=== PATIENT | male | born 1995 | race Caucasian/White ===

== ENCOUNTER 2016-09-24 20:15 | Emergency (ER) | payer MEDICAID ==
[~2016-09-24] VITALS: Ht 167.6 cm; Wt 74.5 kg
[2016-09-24 20:27] VITALS: Ht 167.6 cm; Wt 74.5 kg
--- NOTE | 2016-09-24 22:37 | RADRPT ---
PROCEDURE: CT Head without. CLINICAL INDICATION: Fall, loss of consciousness. TECHNIQUE: The study was performed utilizing a multi-slice, multidetector CT scanner. Direct spira l 1 mm axial sections were obtained through the head without the use of intravenous contrast materia l. 1 or more of the following dose reduction techniques were utilized: Automated exposure control, adjustment of the mA and/or kV according to patient's size, iterative reconstruction technique. Co elida and sagittal reformations were obtained. The images were reviewed on a PACS workstation. RADIATION DOSE: CTDIvol: 45.0 mGyDLP: 720.2 mGy-cm COMPARISON: No prior studies are available for comparison. FINDINGS: There is no intracranial hemorrhage, extra-axial fluid collection, mass lesion, midline shift or hyd rocephalus. The ventricles, sulci and cisterns are within normal limits. The white matter is unrem arkable. The chaudhari-white matter differentiation is preserved. The basal cisterns are patent. The m idline structures are intact. There is minimal soft tissue swelling in the right parietal region wi thout evidence of underlying calvarial fracture. The orbits are normal in appearance. The visualize d paranasal sinuses, mastoid air cells and middle ear cavities are normally aerated. There is pneuma tization bilateral petrous apices without evidence of inflammatory changes, normal variant. IMPRESSION: 1. No acute intracranial abnormality. No intracranial hemorrhage, extra-axial fluid collection, ma ss lesion or hydrocephalous. 2. Minimal swelling in the right parietal region without evidence of underlying calvarial fracture. RPTAT: HGAS .Kvng Durant MD, MD Date Time Electronically viewed and signed by .Kvng Durant MD, MD on 09/24/2016 22:36 .S/
--- NOTE | 2016-09-24 22:38 | ERD ---
ER Documentation Chief Complaint Date/Time DATE: 09/24/16 TIME: 22:37 Chief Complaint pt reports he felll playing soccer and had +LOC HPI This is a 21-year-old male presents ER after he fell playing soccer. Patient states that he had his head against the glass and that he lost consciousness. He denies any nausea or vomiting. He denies any headache at this time. Patient does admit to dizziness. He denies any fevers or chills. ROS 12 point review of systems was done, all negative except per HPI. Medications Home Meds Active Scripts Ibuprofen* (Motrin*) 600 Mg Tab, 600 MG PO Q6, #30 TAB Prov:JUSTUS ORELLANA 09/24/16 Allergies Allergies: Coded Allergies: No Known Allergy (Unverified , 09/24/16) PMhx/Soc Medical and Surgical Hx: pt denies Medical Hx, pt denies Surgical Hx Hx Alcohol Use: No Hx Substance Use: No Hx Tobacco Use: No Smoking Status: Unknown if ever smoked Physical Exam Vitals Vital Signs Date Time Temp Pulse Resp B/P Pulse Ox O2 Delivery O2 Flow Rate FiO2 09/24/16 20:27 98.3 90 16 134/79 100 Physical Exam GENERAL: The patient is well developed and appropriate for usual state of health , in no apparent distress. HEENT: Atraumatic. Conjunctivae are pink. Pupils equal, round, and reactive to light. Extraocular muscles are grossly intact. Bilateral tympanic membranes are clear with no evidence of erythema, bulging or perforation. No sinus tenderness. No hemotympanum no raccoon and no Ortega sign NECK: C-spine is soft and supple. There is no cervical lymphadenopathy. CHEST: Clear to auscultation bilaterally. There are no rales, wheezes or rhonchi. HEART: Regular rate and rhythm. No murmurs, clicks, rubs or gallops. EXTREMITIES: Equal pulses bilaterally. There is no peripheral clubbing, cyanosis or edema. No focal swelling or erythema. Full range of motion. Grossly neurovascularly intact. NEURO: Alert and oriented. Cranial nerves II through XII are intact. Motor strength in all 4 extremities with 5/5 strength. Sensation grossly intact. Normal speech and gait. Negative Rhomberg. +2 DTRs. SKIN: There is no apparent rash or petechia. The skin is warm and dry. Procedures/MDM Differential Diagnosis includes but is not limited to; tension headache, migraine headache, cluster headache, sinus headache, nonspecific febrile headache, trigeminal neurologia, subdural hematoma, subarachnoid bleeding, meningitis, encephalitis. Patient is neurologically intact with no focal neurological deficits. At this time there is no evidence of acute intracranial bleed. Patient will be sent home with ibuprofen. He needs to follow-up with his primary care doctor within 1-2 days or return to ER sooner symptoms worsen. My medical decision making was shared with patient he understands and agrees with plan. Departure Diagnosis: Primary Impression: Fall Condition: Stable JUSTUS ORELLANA Sep 24, 2016 22:38
[2016-09-24] MEDS ORDERED: IBUP-1542 PO (22:39)
== END 2016-09-24 22:54 | disposition home or self-care (01) ==
LOC: FTE 20:15
DX: S09.90XA Unspecified injury of head, initial encounter (principal); R40.4 Transient alteration of awareness; W18.39XA Other fall on same level, initial encounter; Y92.89 Other specified places as the place of occurrence of the external cause
CPT/HCPCS: 70450; Z7502

== ENCOUNTER 2016-10-17 15:41 | Emergency (ER) | payer MEDICAID ==
[~2016-10-17] VITALS: Ht 167.6 cm; Wt 74.0 kg
[~2016-10-17 15:41] MED LIST: IBUP-1542 PO
[2016-10-17 16:17] VITALS: Ht 167.6 cm; Wt 74.0 kg
--- NOTE | 2016-10-17 17:17 | ERD ---
ER Documentation Chief Complaint Date/Time DATE: 10/17/16 TIME: 17:12 Chief Complaint LT EYE INJURY WHILE PLAYING SOCCER THIS AFTERNOON HPI 21-year-old otherwise healthy male presents the emergency department with complaints of an eye injury. Patient states he was playing soccer an hour and half prior to arrival and accidentally was hit in the head by another person's elbow. Patient denies any loss of consciousness. Patient states that since that time, he experienced bleeding and bruising. Patient denies any diplopia or blurry vision. Patient denies any nausea or vomiting. Patient denies any history of seizures or multiple head traumas. Patient unaware of when the last tetanus booster was administered. ROS All systems reviewed and are negative except as per history of present illness. Medications Home Meds Active Scripts Ibuprofen* (Motrin*) 600 Mg Tab, 600 MG PO Q6, #30 TAB Prov:JUSTUS ORELLANA Ronan 09/24/16 Allergies Allergies: Coded Allergies: No Known Allergy (Unverified , 09/24/16) PMhx/Soc Hx Alcohol Use: No Hx Substance Use: No Hx Tobacco Use: No Physical Exam Vitals Vital Signs Date Time Temp Pulse Resp B/P Pulse Ox O2 Delivery O2 Flow Rate FiO2 10/17/16 16:17 98.7 70 16 137/61 98 Physical Exam Const: Well-developed, well-nourished, no acute distress Head: Atraumatic Eyes: Normal Conjunctiva ENT: 1.5 cm superficial laceration located inferior-lateral to the left eyebrow with underlying small hematoma and surrounding bruising. EOMs intact, PERRLA. Normal External Ears, Nose and Mouth. Neck: Full range of motion..~ No meningismus. Resp: Clear to auscultation bilaterally Cardio: Regular rate and rhythm, no murmurs Abd: Soft, non tender, non distended. Normal bowel sounds Skin: No petechiae or rashes Back: No midline or flank tenderness Ext: No cyanosis, or edema Neur: Cranial nerves II through XII intact. Awake and alert Psych: Normal Mood and Affect Results 24 hrs Current Medications Medications (Trade) Dose Ordered Sig/Eduard Route PRN Reason Start Time Stop Time Status Last Admin Dose Admin Acetaminophen (Tylenol Tab) 650 mg ONCE ONCE PO 10/17/16 17:30 10/17/16 17:31 DC 10/17/16 17:33 Diphtheria/ Tetanus/Acell Pertussis (Adacel) 0.5 ml ONCE ONCE IM* 10/17/16 17:30 10/17/16 17:31 DC 10/17/16 17:33 Procedures/MDM Laceration Repair by me: Anesthesia: 1% lidocaine locally Location: Left upper eyelid Tendon/Joint/Nerves: No injury Foreign body: None detected after copious irrigation and exploration Technique: Dermabond skin glue Complexity: No subcutaneous sutures/mucosal repair/ edge excision Post Closure Length: 1.5 cm Patient's bleeding was easily controlled in the department and there is no indication of anemia. No evidence of compartment syndrome, neurologic injury, vascular injury, open joint, tendon laceration, or foreign body. Patient is appropriate for outpatient follow up. Scar minimization instructions given. Patient received tetanus booster while in the emergency department as well as 1 dose of Tylenol. Patient denies a history of multiple head traumas or seizures , nausea, vomiting, change in vision, or lethargy. Low suspicion for intracranial hemorrhage or traumatic brain injury. Patient to continue anti-inflammatory medication for bruising and swelling. Based on patient's history of present illness and physical examination the decision was made to discharge. The patient was re-evaluated after ED treatment and stabilizing measures, and symptoms have improved. There is no evidence of life threatening injuries or illnesses at this time. On re-examination, patient resting in no distress, stable vital signs, reports feeling better and safe for discharge with outpatient follow up with PMD in 1-2 days. Patient given return precautions. Departure Diagnosis: Primary Impression: Eye injury Encounter type: initial encounter Laterality: left Qualified Code: S05.92XA - Left eye injury, initial encounter Additional Impressions: Pain in eye Laterality: left Qualified Code: H57.12 - Pain in eye, left Laceration Head injury Encounter type: initial encounter Qualified Code: S09.90XA - Head injury, initial encounter SOHAM BATISTA PA-C Oct 17, 2016 17:17
[2016-10-17] MEDS ORDERED: DIPHTH/TET/ACEL PERTUSS (ADULT) 0.5 ML VIAL IM* ONE (17:30)
[2016-10-17] MEDS ORDERED: ACETAMINOPHEN 325 MG TAB PO ONE (17:30)
[2016-10-17] MEDS ORDERED: NAPR-260 PO (17:46)
[2016-10-17] MEDS ORDERED: ACET325T33 PO (17:46)
== END 2016-10-17 17:54 | disposition home or self-care (01) ==
LOC: FTE 15:41
DX: S01.112A Laceration without foreign body of left eyelid and periocular area, initial encounter (principal); S09.90XA Unspecified injury of head, initial encounter; W50.0XXA Accidental hit or strike by another person, initial encounter; Y92.9 Unspecified place or not applicable; Z23 Encounter for immunization
CPT/HCPCS: 12011; 90471; 90715; Z7502; Z7610

== ENCOUNTER 2017-12-14 18:57 | Emergency (ER) | END 2017-12-14 22:21 | disposition home or self-care (01) ==